=== PATIENT | female | born 2000 | race Hispanic/Latino ===

== ENCOUNTER 2021-05-06 20:25 | Emergency (ER) | payer OTHER ==
[2021-05-06 21:27] LABS: Urine Blood 1+ (Negative); Urine Glucose Negative (Negative); Urine Protein Negative (Negative); Urine pH 5.5 (5.0-7.0)
[2021-05-06] MEDS ORDERED: CEFTRIAXONE 250 MG/VIAL ONE (22:04)
[2021-05-06] MEDS ORDERED: LIDOCAINE 1% MPF 2 ML AMPULE ONE (22:04)
[2021-05-06] MEDS ORDERED: AZITHROMYCIN 250 MG TAB ONE (22:04)
--- NOTE | 2021-05-06 22:39 | ER ---
Nurse's Notes [facility] Name: Radha Bishop Age: 20 yrs Sex: Female : 2000 Arrival Date: 05/06/2021 Time: 20:28 Bed 23 Private MD: Diagnosis: Person with feared health complaint in whom no diagnosis is made Presentation: 05/06 20:55 Chief complaint: Patient states: the patient had unprotected sex 2 days ago the partner st1 had small bumps all over his body. She is now having light bleeding and light cramping since today. Coronavirus screen: Vaccine status: Patient reports receiving the 1st dose of the Covid vaccine. [employer]. Risk Assessment: Do you want to hurt yourself or someone else? Patient reports no desire to harm self or others. Onset of symptoms was May 06, 2021. 20:55 Method Of Arrival: Ambulatory st1 20:55 Acuity: LIN 2 st1 21:15 Ebola Screen: No symptoms or risks identified at this time. Initial Sepsis Screen: Does ss7 the patient meet any 2 criteria? No. Patient's initial sepsis screen is negative. Does the patient have a suspected source of infection? No. Patient's initial sepsis screen is negative. Triage Assessment: 21:02 General: Appears in no apparent distress. comfortable, Behavior is calm, cooperative. st1 Pain: Denies pain. 22:40 General: Pt departed ed ambulatory in nad, with all personal effects, vss prior to lr4 depart. 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 - Social history:: Smoking status: Patient denies any tobacco usage or history of. Patient/guardian denies using alcohol, street drugs, IV drugs, tobacco products. Screenin:15 Abuse screen: Denies threats or abuse. Nutritional screening: No deficits noted. ss7 Tuberculosis screening: No symptoms or risk factors identified. Fall Risk None identified. Assessment: 21:13 General: Appears in no apparent distress. Behavior is calm, cooperative, appropriate ss7 for age. Pain: Complains of pain in abdomen Quality of pain is described as crampy. Neuro: No deficits noted. Cardiovascular: No deficits noted. Respiratory: No deficits noted. GI: No deficits noted. Abdomen is non-distended, Bowel sounds present X 4 quads. Reports lower abdominal pain. : No deficits noted. EENT: No deficits noted. Derm: No deficits noted. Musculoskeletal: No deficits noted. Vital Signs: 20:55 BP 122 / 84; Pulse 85; Resp 16; Pulse Ox 100% on R/A; Weight 90.72 kg; Height 5 ft. 3 st1 in. (160.02 cm); Pain 0/10; 21:59 BP 117 / 88; Pulse 77; Resp 18; Pulse Ox 100% on R/A; ss7 22:39 BP 120 / 83; Pulse 83; Resp 18; Pulse Ox 100% on R/A; Pain 0/10; lr4 20:55 Body Mass Index 35.43 (90.72 kg, 160.02 cm) st1 ED Course: 20:28 Patient arrived in ED. es 20:52 Karl Bautista NP is PHCP. pm1 20:52 Real Rubalcava MD is Attending Physician. pm1 20:55 Zahida Martínez RN is Primary Nurse. st1 21:02 Triage completed. st1 21:15 Arm band placed on. ss7 21:16 Patient has correct armband on for positive identification. Bed in low position. Call ss7 light in reach. Side rails up X2. 21:16 No provider procedures requiring assistance completed. ss7 22:03 Urine Microscopic Only Sent. lr4 22:40 Patient did not have IV access during this emergency room visit. lr4 Administered Medications: 22:07 Drug: Rocephin (cefTRIAXone) 250 mg Route: IM; Site: right ventrogluteal; ss7 22:41 Follow up: Response: No adverse reaction lr4 22:07 Drug: AZITHromycin 1 grams Route: PO; ss7 22:41 Follow up: Response: No adverse reaction lr4 Outcome: 22:38 Discharge ordered by . pm1 22:40 Condition: good lr4 22:40 Discharged to home ambulatory. lr4 22:40 Discharge instructions given to patient. lr4 22:49 Patient left the ED. lr4 Signatures: Katrin Robertson Patrick, NP SHEET METAL WORK FURNACE INSTALLER pm1 Zahida Martínez RN RN st1 Margareth Paieg, RN RN ss7 Le Moore, RN RN lr4
--- NOTE | 2021-05-06 22:39 | EDPHYS ---
Physician Documentation [facility] Name: Radha Bishop Age: 20 yrs Sex: Female : 2000 Arrival Date: 05/06/2021 Time: 20:28 Bed 23 Private MD: ED Physician Real Rubalcava HPI: 05/06 21:30 This 20 yrs old Female presents to ER via Ambulatory with complaints of pm1 possible STD exposure. 21:30 Onset: The symptoms/episode began/occurred 2 day(s) ago. Modifying factors:. Associated pm1 signs and symptoms: The patient has no apparent associated signs or symptoms, Pertinent negatives: dyspareunia, dysuria, fever, vaginal bleeding, vaginal discharge. Severity of symptoms: in the emergency department the symptoms are unchanged. The patient is sexually active, uses protection during intercourse. The patient's method of control includes condom. The patient has not experienced similar symptoms in the past. The patient has not recently seen a physician. Patient presenting to the ER with complaints of possible STD exposure. Protected with condom intercourse with a man that she barely knows. Patient had multiple lesions on his body that made her concerned that she might have been exposed to HIV or hepatitis. 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 - Social history:: Smoking status: Patient denies any tobacco usage or history of. Patient/guardian denies using alcohol, street drugs, IV drugs, tobacco products. ROS: 21:30 Negative for urinary symptoms, vaginal bleeding, vaginal discharge. pm1 21:30 Constitutional: Negative for fever, chills, and weight loss, Cardiovascular: Negative for chest pain, palpitations, and edema, Respiratory: Negative for shortness of breath, cough, wheezing, and pleuritic chest pain, Abdomen/GI: Negative for abdominal pain, nausea, vomiting, diarrhea, and constipation, MS/Extremity: Negative for injury and deformity, Skin: Negative for injury, rash, and discoloration. 21:30 All other systems are negative. Exam: 21:30 Constitutional: This is a well developed, well nourished patient who is awake, alert, pm1 and in no acute distress. Head/Face: Normocephalic, atraumatic. 21:30 Back: No spinal tenderness. No costovertebral tenderness. Full range of motion. Skin: Warm, dry with normal turgor. Normal color with no rashes, no lesions, and no evidence of cellulitis. MS/ Extremity: Pulses equal, no cyanosis. Neurovascular intact. Full, normal range of motion. 21:30 Eyes: Exam is negative for acute changes, Periorbital structures: appear normal, Extraocular movements: no acute changes, Sclera: no acute changes, icterus, is not appreciated. 21:30 ENT: Exam is negative for acute changes, Mouth: no acute changes, Lips: normal, moist, Oral mucosa: normal, pink and intact, moist. 21:30 Cardiovascular: Exam negative for acute changes, Rate: normal, Rhythm: regular, Pulses: no pulse deficits are appreciated. 21:30 Respiratory: Exam negative for acute changes, respiratory distress, shortness of breath. 21:30 Abdomen/GI: Inspection: abdomen appears normal, Palpation: abdomen is soft and non-tender, in all quadrants. 21:30 Neuro: Exam negative for acute changes, Orientation: is normal, Mentation: is normal, Motor: is normal, moves all fours, Gait: is steady, at a normal pace, without difficulty. Vital Signs: 20:55 BP 122 / 84; Pulse 85; Resp 16; Pulse Ox 100% on R/A; Weight 90.72 kg; Height 5 ft. 3 st1 in. (160.02 cm); Pain 0/10; 21:59 BP 117 / 88; Pulse 77; Resp 18; Pulse Ox 100% on R/A; ss7 22:39 BP 120 / 83; Pulse 83; Resp 18; Pulse Ox 100% on R/A; Pain 0/10; lr4 20:55 Body Mass Index 35.43 (90.72 kg, 160.02 cm) st1 MDM: 20:57 Patient medically screened. [facility] 22:06 Data reviewed: vital signs. Data interpreted: Pulse oximetry: on room air is 100 %. pm1 Interpretation: normal. 22:38 Counseling: I had a detailed discussion with the patient and/or guardian regarding: the pm1 historical points, exam findings, and any diagnostic results supporting the discharge/admit diagnosis, lab results, the need for outpatient follow up, a family practitioner, STD clinic, to return to the emergency department if symptoms worsen or persist or if there are any questions or concerns that arise at home. 05/06 21:27 Order name: Urine Dipstick-Ancillary; Complete Time: 21:30 EDND 05/06 21:54 Order name: Urine Microscopic Only pm1 05/06 21:30 Order name: Urine Test (obtain specimen); Complete Time: 22:03 pm1 05/06 22:03 Order name: Urine --Ancillary (enter results) cs9 Administered Medications: 22:07 Drug: Rocephin (cefTRIAXone) 250 mg Route: IM; Site: right ventrogluteal; ss7 22:41 Follow up: Response: No adverse reaction lr4 22:07 Drug: AZITHromycin 1 grams Route: PO; ss7 22:41 Follow up: Response: No adverse reaction lr4 Disposition: 05/07 08:59 Co-signature as Attending Physician, Real Rubalcava MD I agree with the assessment and sary plan of care. Disposition Summary: 05/06/21 22:38 Discharge Ordered Location: Home pm1 Problem: new pm1 Symptoms: have improved pm1 Condition: Stable pm1 Diagnosis - Person with feared health complaint in whom no diagnosis is made pm1 Followup: pm1 - With: Emergency Department - When: As needed - Reason: Worsening of condition Followup: pm1 - With: Private Physician - When: 2 - 3 days - Reason: Recheck today's complaints, Continuance of care, Re-evaluation by your physician Discharge Instructions: - Discharge Summary Sheet pm1 - Preventing Sexually Transmitted Infections, Adult pm1 Forms: - Medication Reconciliation Form pm1 - Thank You Letter pm1 - Antibiotic Education pm1 - Prescription Opioid Use pm1 Signatures: Dispatcher [employer] Real White MD MD cha Marinas, Patrick, PRINTING SERVICES COORDINATOR PRINTING SERVICES COORDINATOR pm1 Zahida Martínez RN RN st1 Margareth Paige RN RN ss7 Le Moore RN lr4
[2021-05-06 23:53] VITALS: O2SAT 100
[2021-05-07] LABS: Urine Bacteria <20 /HPF (<20); Urine RBC <5 /HPF (NONE SEEN)
[2021-05-07 00:14] VITALS: BP 120/83
== END 2021-05-06 22:49 | disposition home or self-care (01) ==
LOC: ER 20:25
DX: Z71.1 Person with feared health complaint in whom no diagnosis is made (principal)
CPT/HCPCS: 81025; 96372; 99283; J0696; 81003; 81015